=== PATIENT | male | born 2000 | race Caucasian/White ===

== ENCOUNTER 2022-07-08 15:42 | Emergency (ER) | payer OTHER ==
[~2022-07-08] VITALS: Ht 167.6 cm; Wt 86.2 kg
[2022-07-08 15:48] VITALS: BP_SYST 155
[2022-07-08] MEDS ORDERED: NAPR-1172 PO (16:39)
[2022-07-08 17:07] VITALS: BP_SYST 155
== END 2022-07-08 17:08 | disposition home or self-care (01) ==
LOC: SED 15:42
DX: R51.9 Headache, unspecified (principal); I10 Essential (primary) hypertension; F12.90 Cannabis use, unspecified, uncomplicated; Z79.899 Other long term (current) drug therapy
CPT/HCPCS: 70450-TC; 76376; 99284